=== PATIENT | male | born 1990 | race Two or more races ===

== ENCOUNTER 2018-03-06 11:30 | Emergency (ER) | payer MEDICAID ==
[~2018-03-06] VITALS: Ht 175.3 cm; Wt 70.1 kg
[2018-03-06 11:33] VITALS: BP 143/97
== END 2018-03-06 12:34 | disposition home or self-care (01) ==
LOC: ER 11:31
DX: S62.664A Nondisplaced fracture of distal phalanx of right ring finger, initial encounter for closed fracture (principal); X58.XXXA Exposure to other specified factors, initial encounter; Y93.89 Activity, other specified; Y92.89 Other specified places as the place of occurrence of the external cause; Y99.8 Other external cause status
CPT/HCPCS: 29130; 73140; 99284

== ENCOUNTER 2018-11-13 04:14 | Emergency (ER) | payer OTHER, MEDICAID ==
[~2018-11-13] VITALS: Ht 175.3 cm; Wt 81.8 kg
[2018-11-13 04:23] VITALS: BP 128/79
[2018-11-13] MEDS ORDERED: ketorolac trometh inj. 60 MG/2 ML VIAL IM ONE (04:30)
== END 2018-11-13 05:12 | disposition home or self-care (01) ==
LOC: ER 04:15
DX: M54.41 Lumbago with sciatica, right side (principal)
CPT/HCPCS: 72100; 96372; 99283; J1885